=== PATIENT | female | born 1950 ===

== ENCOUNTER 2025-08-19 09:08 | Outpatient (AMB) | payer MEDICARE, MEDICAID, SELFPAY ==
[2025-08-19 09:40] VITALS: BP 113/76; PULSE 71; RESP 18; TEMP 35.9; O2SAT 96; BMI 26.6
--- NOTE | 2025-08-19 09:40 | PD.ORTHCLVIS ---
Vital signs 08/19/25 09:40 Height 1.47 m Height Method Measured Weight 57.72 kg Weight Measurement Method Standing Scale BMI 26.6 BP 113/76 Blood Pressure Source Automatic Cuff Blood Pressure Location Left Upper Arm Position Sitting Respiration 18 Pulse 71 Pulse Source Monitor Temp 96.7 F L Temp Source Temporal Artery Scan Pulse Oximetry (%) 96 Oxygen Delivery Method Room Air Med/Allergies Allergies & Medications Allergies No Known Allergies Allergy (Verified 08/19/25 09:41) Medication Reconciliation Unobtainable 08/19/25 [History Confirmed 08/19/25] Exam Exam Breathing is nonlabored. Patient has a normal mood and affect. Bilateral extremities were evaluated and demonstrates sensation intact to light touch. Palpable pedal pulses are present. No significant edema is present. Bilateral hips were examined. The patient has no pain with log roll of the hips. Internal rotation to 30 degrees and external rotation to 30 degrees is painless. Negative FADIR. L left knee incisions clean and intact. Knee range of motion is 0 to 110 degrees The right knee was also examined. The right knee is in varus alignment. Range of motion from 0-115 degrees. Knee is stable to varus and valgus as well as AP translation with <5mm. Patient has a negative McMurrays. There is no pain with patellofemoral compression and no crepitus noted. The knee is tender to palpation medially. Right knee x-rays demonstrates significant varus deformity with osteophytes and complete joint space narrowing and obliteration of the joint space Assessment and Plan Problem List (1) Arthritis of knee, right: Status: Acute Plan: Patient is a 75-year-old female with right knee pain and severe right knee arthritis. We discussed different treatment options. We discussed anti-inflammatories and injections. She would like to try conservative treatment Recommend knee cortisone injection as patient would like to proceed with conservative treatment at this time. The risks and benefits of the procedure were reviewed with the patient and patient gave verbal consent to continue with the procedure. Procedure: performed by Dr. Mayorga Using sterile technique the Right knee was thoroughly prepped with alcohol, and approximately 1 cc of Depo-Medrol 80mg/mL and 4 cc of 0.2% ropivacaine was injected without resistance into the medial tibial femoral joint space. The patient tolerated the procedure. 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 Level 3 (0341-9176) Surgical Proc/IM SQ injection Minor Surgical Procedure: Yes (KNEE INJECTION) Medication Given Medication Given Medication Given: Yes Documented Dose Given: 1 Route: Infiitration Medication Given Medication Given Medication Given: Yes Documented Dose Given: 4 Route: Infiitration Office Meds methylprednisolone acetate 80 mg/mL suspension for injection Performing Provider: John Mayorga MD Performing Location: [facility] Administered by: John Mayorga MD on 08/19/25 12:17 Dose Route Admin Location Dispensed Lot Number Expiration Date Package [facility] NDC Hide Tanner 80 mg intra-articular 1 mL [id number] 04/27/27 [address]-6 [id number] [employer] ropivacaine (PF) 2 mg/mL (0.2 %) injection solution Performing Provider: John Mayorga MD Performing Location: [facility] Administered by: John Mayorga MD on 08/19/25 12:17 Dose Route Admin Location Dispensed Lot Number Expiration Date Package NDC NDC Hide Tanner 20 mL Infiltration 20 mL [id number] 10/28/27 34131-492-65 [id number] [facility], [facility] Intake Visit Data Collection New Patient or Established: New Patient (never been to [facility]) Reason for Visit:: BILATERAL OSTEOARTHRITIS KNEE Seen by Clinical Staff ONLY (RN/MA): No Vice President Financial Required: No PCP or OBGYN visit in last 3 months: Yes Hx Now: No Do You Feel Safe at Home: Yes Authorities Contacted: N/A Questionairres Past Medical History Past Medical History Have you ever been diagnosed with any of the following: Subjective Visit Visit for: new patient and knee Immunization / Flu Flu Vaccine in the Last 12 Months: No Flu Vaccine Exclusion Criteria: Refused by Patient History of Present Illness Chief complaint: BILATERAL OSTEOARTHRITIS Date of injury / onset of symptoms: 4 MONTHS HISTORY OF PRESENT ILLNESS IJohn, have obtained verbal consent from the patient, to be recorded during this encounter which may include, but not limited to, medical history, examination, treatment plans, and relevant health information.? Patient was informed that recording will be read and reviewed by myself before inclusion in the medical chart. The patient is a 75-year-old female presenting for bilateral knee pain. She reports intermittent pain in her left knee, which was replaced 6 years ago. The pain is described as sharp, dull, and aching, located medially and anteriorly in the knee. It is rated as a 6 on a scale of 10 and occurs mostly at night or when she is ascending or descending stairs. She has not received any injections for her knees. She underwent 4 months of physical therapy following her left knee surgery. She has noticed an increasing curvature in her right knee, which she can feel while walking. She inquires if this could be related to her arthritis. Her primary care physician has commended the quality of her previous knee replacement surgery. She has been managing her pain with gabapentin and Tylenol, which provide some relief but are not significantly effective. She is diabetic with an A1c of 5.6 as of 01/31/2025. She has a history of DVT, chronic kidney disease, diabetes, hypertension, and hyperlipidemia. She is on Xarelto. PAST SURGICAL HISTORY: Left knee replacement 6 years ago. Personal History Occupation: HOME Red flag PMH: none BMI Counceling provided: Yes Pain Pain level (0-10): 6 Pain location: inside (medial) and anterior Pain quality: sharp, dull and aching Pain timing: night, increases with activity and stairs Associated signs & symptoms: none Ambulatory data Ambulatory device: none Treatments Number of previous injections: 0 Improvement with previous injections: No Number of Physical Therapy sessions: 4 Improvement with PT: Yes Improvement with NSAIDS: yes (GABAPENTIN) Review of Systems Review of Systems: All systems negative unless otherwise noted in HPI.
--- NOTE | 2025-08-19 09:49 | XR_ITS ---
EXAMINATION: Bilateral knees 2 views Right lateral knee left lateral knee 2 views Bilateral Axuni single view TECHNIQUE: Bilateral AP knees standing single view Bilateral PA knees standing single view flexion Standing right lateral knee left lateral knee 2 views Bilateral axial knee single view Date and time: August 19, 2025, 0957 hours INDICATIONS: Left knee replacement 5 years ago, right knee pain several years. FINDINGS: Severe osteopenia Severe narrowing [id number] medial joint space right knee Moderate narrowing right patellofemoral joint Moderate knee effusion No fracture Total left knee arthroplasty. Satisfactory alignment. No loosening of the prosthetic components IMPRESSION: Advanced right knee tricompartment osteoarthritis including severe narrowing, [id number], medial joint space right knee
== END 2025-08-19 10:24 | disposition home or self-care (01) ==
PROVIDERS: PCP Physician Assistant Medical; Referring Provider Physician Assistant Medical; Supervising Provider Orthopaedic Surgery Adult Reconstructive Orthopaedic Surgery; Visit Provider Orthopaedic Surgery Adult Reconstructive Orthopaedic Surgery
DX: M17.11 Unilateral primary osteoarthritis, right knee (principal); M25.562 Pain in left knee; M25.561 Pain in right knee; I12.9 Hypertensive chronic kidney disease with stage 1 through stage 4 chronic kidney disease, or unspecified chronic kidney disease; E11.22 Type 2 diabetes mellitus with diabetic chronic kidney disease; N18.9 Chronic kidney disease, unspecified; E78.5 Hyperlipidemia, unspecified; Z86.718 Personal history of other venous thrombosis and embolism
CPT/HCPCS: 20610; 73564; 99203; J1010; J2795; G0463